=== PATIENT | male | born 1975 | race Caucasian/White ===

== ENCOUNTER 2020-02-21 02:06 | Emergency (ER) | payer BC ==
[2020-02-21] MEDS ORDERED: ACETAMINOPHEN 325 MG TABLET PO ONE (02:42)
[2020-02-21 03:13] LABS: ABSOLUTE BASOPHILS # (AUTO) 0.1 10^3/uL (0.0-0.2); ABSOLUTE EOSINOPHILS # (AUTO) 0.2 10^3/uL (0.0-0.6); ABSOLUTE LYMPHOCYTES (AUTO) 1.4 10^3/uL (0.5-4.7); ABSOLUTE MONOCYTES (AUTO) 0.5 10^3/uL (0.1-1.4); ABSOLUTE NEUT (AUTO) 8.8 10^3/uL (1.7-8.2); BASOPHILS % (AUTO) 0.7 % (0-2); EOSINOPHILS % (AUTO) 1.9 % (0-6); HEMATOCRIT 43.6 % (37.9-51.0); HEMOGLOBIN 15.2 g/dL (13.5-17.0); LYMPHOCYTES % (AUTO) 12.8 % (13-45); MEAN CORPUSCULAR HEMOGLOBIN 30.8 pg (27.0-33.4); MEAN CORPUSCULAR HGB CONC 34.8 g/dL (32.0-36.0); MEAN CORPUSCULAR VOLUME 88 fl (80-97); MONOCYTES % (AUTO) 4.4 % (3-13); PLATELET COUNT 309 10^3/uL (150-450); RED BLOOD COUNT 4.93 10^6/uL (4.35-5.55); RED CELL DISTRIBUTION WIDTH 13.2 % (11.5-14.0); SEGMENTED NEUTROPHILS % (AUTO) 80.2 % (42-78); TOTAL CELLS COUNTED % (AUTO) 100 %
[2020-02-21 03:25] LABS: ALBUMIN 4.2 g/dL (3.5-5.0); ALKALINE PHOSPHATASE 119 U/L (38-126); ANION GAP 9 (5-19); ASPARTATE AMINO TRANSFERASE 40 U/L (17-59); BILIRUBIN,DIRECT 0.1 mg/dL (0.0-0.4); BILIRUBIN,TOTAL 0.8 mg/dL (0.2-1.3); BLOOD UREA NITROGEN 18 mg/dL (7-20); CALCIUM 9.7 mg/dL (8.4-10.2); CARBON DIOXIDE 20 mmol/L (22-30); CHLORIDE 106 mmol/L (98-107); CREATINE KINASE 55 U/L (55-170); GLUCOSE 171 mg/dL (75-110); POTASSIUM 4.1 mmol/L (3.6-5.0); TOTAL PROTEIN 7.5 g/dL (6.3-8.2)
[2020-02-21 03:38] LABS: TROPONIN I < 0.012 ng/mL
--- NOTE | 2020-02-21 03:47 | RADIOLOGY REPORT (SQ) ---
EXAM DESCRIPTION: [facility]: XR CHEST 2 VIEWS Views: 2 CLINICAL HISTORY: 44 years Male; cp; COMPARISON: 01/27/2013 FINDINGS: Lungs: Mild linear atelectasis in the left lower lung field. No acute infiltrates, effusion, or pneumothorax. Mediastinum: Loop recorder is noted. No mediastinal widening or shift. Heart size is normal. Bones: Bony structures are unremarkable. IMPRESSION: 1. No acute cardiothoracic abnormality.
[2020-02-21] MEDS ORDERED: ONDANSETRON HCL INJ/PF 4 MG/2 ML SDV IV ONE (05:15)
[2020-02-21] MEDS ORDERED: MORPHINE SULFATE 10 MG/ML INJ IV ONE (05:15)
--- NOTE | 2020-02-21 05:32 | ER Document Report ---
ED Medical Screen (RME) - General Chief Complaint: Chest Pain Stated Complaint: SOB/BACK PAIN Primary Care Provider: ARLENE ARCHULETA [Primary Care Provider] - Follow up as needed - HPI Notes: 02/21/20 05:26 44-year-old male history of obesity, colostomy bag secondary to diverticulitis, V. tach episode 3 years ago presents with chest pain. Patient sudden onset pain in upper left back and upper left abdomen that began at rest at 1 am and has been constant since associated with shortness of breath without aggravating or alleviating factors or prior episodes. Pain seemed to start in back and then moved to abdomen. Patient had described chest pain but then points to upper left abdomen. Patient denies cough, fever, CAD history, hypertension hyperlipidemia diabetes, smoking, IV drug use, alcohol use, vomiting, bowel symptoms, urinary symptoms, exertional chest pain, pleuritic chest pain, lower extremity edema, DVT/PE history - Related Data Allergies/Adverse Reactions: Penicillins Allergy (Verified 01/27/13 12:04) Home Medications: asa, cardiviel, lisnipril, aldactone Past Medical History - General Information source: Patient, Relative Endocrine Medical History: Reports: Hx Diabetes Mellitus Type 2 - Sig hx mother side Past Surgical History: Reports: Hx Appendectomy, Hx Orthopedic Surgery - arthroscope rt. shoulder - Immunizations Hx Diphtheria, Pertussis, Tetanus Vaccination: Yes Review of Systems - Review of Systems Notes: General: No fever, no chills Physical Exam - Vital signs Vitals: Temp Pulse Resp BP Pulse Ox 97.8 F 103 H 17 137/76 H 98 02/21/20 02:20 02/21/20 02:20 02/21/20 02:20 02/21/20 02:20 02/21/20 02:20 - Notes Notes: PHYSICAL EXAMINATION: GENERAL: Well-appearing, well-nourished and in no acute distress. HEAD: Atraumatic, normocephalic. EYES: Pupils equal round and appropriate constriction, sclera anicteric, conjunctiva are normal. ENT: nares patent, moist mucous membranes. NECK: Normal range of motion, supple without lymphadenopathy LUNGS: Breath sounds clear to auscultation bilaterally and equal. No wheezes rales or rhonchi. HEART: Regular rate and rhythm without murmurs, bilateral radial pulses 2+ equal ABDOMEN: Soft, nontender, no guarding, no masses, no CVAT, right lower quadrant ostomy bag in place with brown soft stool in bag EXTREMITIES: Normal range of motion, no pitting or edema. No cyanosis. NEUROLOGICAL: Awake, alert, conversing appropriately, moves all extremities spontaneously. PSYCH: Normal mood, normal affect. SKIN: Warm, Dry, normal turgor, no rashes or lesions noted. Course - Re-evaluation Re-evalutation: 02/21/20 05:31 Patient to be further evaluated by primary provider. Will order CTA to rule out aortic dissection and continue to closely monitor. - Vital Signs Vital signs: Temp Pulse Resp BP Pulse Ox 97.8 F 103 H 17 137/76 H 98 02/21/20 02:20 02/21/20 02:20 02/21/20 02:20 02/21/20 02:20 02/21/20 02:20 - Laboratory Result Diagrams: 02/21/20 02:55 02/21/20 02:55 Laboratory results interpreted by me: 02/21/20 02/21/20 02:55 02:55 WBC 11.0 H Lymph % (Auto) 12.8 L Absolute Neuts (auto) 8.8 H Seg Neutrophils % 80.2 H Sodium 134.6 L Carbon Dioxide 20 L Glucose 171 H ALT 86 H Doctor's Discharge - Discharge Referrals: LOCALMD,NO [Primary Care Provider] - Follow up as needed
--- NOTE | 2020-02-21 07:31 | ER Document Report ---
ED General - General Chief Complaint: Chest Pain Stated Complaint: SOB/BACK PAIN Time Seen by Provider: 02/21/20 06:57 Primary Care Provider: ARLENE ARCHULETA [NO LOCAL MD] - Follow up as needed - HPI Notes: Patient is a 44-year-old male who presents to the emergency department for evaluation of back and epigastric pain. He states at 1:00 in the morning he was lying in bed, watching television. He developed a sudden pain in his mid back, the lower thoracic region. He states that it radiated through into his abdomen. He describes it as a constant pain, but despite multiple attempts, I am unable to get him to describe it in any other way. He states it progressively got worse. He states at times he felt slightly short of breath with it, slightly nauseated with it. He said normal output through his ostomy. He has had no fevers or chills. No emesis. He does note that he had a rectal contrasted CT scan performed yesterday in [place] to evaluate as to whether or not his ostomy is reversible. Otherwise he has been eating and drinking normally, taking his medications as prescribed. He states his pain was significantly relieved by the medications he was given here in the emergency department. On further questioning the patient states he has had a cough for about a year. He was told it was from the lisinopril. About 5 or 6 months ago it became productive. He was waiting to be evaluated for that when COVID-19 hit. He has had no fevers. - Related Data Allergies/Adverse Reactions: Penicillins Allergy (Verified 01/27/13 12:04) Home Medications: asa, Coreg, lisinopril, Aldactone Past Medical History - General Information source: Patient, Relative - Social History Smoking Status: Never Smoker Family History: Reviewed & Not Pertinent Patient has homicidal ideation: Yes - Past Medical History Cardiac Medical History: Reports: Hx Hypertension, Other - Ventricular tachycardia Past Surgical History: Reports: Hx Abdominal Surgery - ileostomy, Hx Appendectomy, Hx Orthopedic Surgery - arthroscope rt. shoulder - Immunizations Hx Diphtheria, Pertussis, Tetanus Vaccination: Yes Review of Systems - Review of Systems Respiratory: See HPI Gastrointestinal: See HPI -: Yes All other systems reviewed and negative Physical Exam - Vital signs Vitals: Temp Pulse Resp BP Pulse Ox 97.8 F 103 H 17 137/76 H 98 02/21/20 02:20 02/21/20 02:20 02/21/20 02:20 02/21/20 02:20 02/21/20 02:20 - Notes Notes: This is an obese 44-year-old male appears stated age, no acute distress. Head is normocephalic and atraumatic, pupils are equal round, active to light. Oral mucosa is moist. Uvula is midline. Heart is regular rate and rhythm, lungs are clear to auscultation bilaterally. Abdomen is obese. He is a large midline abdominal scar and an ileostomy in the right lower quadrant with liquid brown stool noted. He has mild epigastric tenderness without rebound or guarding. Normoactive bowel sounds throughout. Extremities without cyanosis, clubbing, edema. Skin is warm and dry. Peripheral pulses are equal. Patient is awake and alert, neurological exam is nonfocal. Course - Re-evaluation Re-evalutation: 02/21/20 07:30 Patient presents to the emergency department for evaluation of back pain radiating into the epigastrium. He was initially seen by another provider, RME note placed in laboratory investigations, medications, imaging ordered. Patient's pain is significantly improved after interventions performed earlier in the department. Still awaiting results of CT angiogram of the chest, abdomen, pelvis. Otherwise, his laboratory investigations are unremarkable. I did add a lipase given his mild epigastric tenderness. Patient is currently stable, we will continue to monitor. 02/21/20 08:47 Patient's lipase was unremarkable. CT scan of the chest, abdomen, pelvis revealed multiple hernias. These are known to the patient and his . He has follow-up with surgery in regards to this. We also discussed the atelectatic changes in the lymph node in his lungs. He talked at length about his productive cough. Given his history, I will go ahead and treat him for potential pneumonia. I will write him a prescription for doxycycline. At any rate, he is told that this will need further imaging and follow-up, perhaps referral on to pulmonology. He needs to discuss this with his primary care provider. He and his both voiced understanding to the need for follow-up. Otherwise patient's abdominal exam remains entirely unremarkable. We will send him home with doxycycline and instructions to return to the ED with worsening. - Vital Signs Vital signs: Temp Pulse Resp BP Pulse Ox 97.8 F 103 H 18 115/72 95 02/21/20 02:20 02/21/20 02:20 02/21/20 08:01 02/21/20 08:01 02/21/20 08:01 - Laboratory Result Diagrams: 02/21/20 02:55 02/21/20 02:55 Laboratory results interpreted by me: 02/21/20 02/21/20 02:55 02:55 WBC 11.0 H Lymph % (Auto) 12.8 L Absolute Neuts (auto) 8.8 H Seg Neutrophils % 80.2 H Sodium 134.6 L Carbon Dioxide 20 L Glucose 171 H ALT 86 H - Diagnostic Test Radiology reviewed: Image reviewed, Reports reviewed - EKG Interpretation by Me Additional EKG results interpreted by me: 02/21/20 07:31 Sinus tachycardia with rate of 107 bpm. Low voltage in the frontal leads. Normal axis and intervals. Nonspecific T wave changes, but no ST elevation concerning for acute infarction. There are no old studies immediately available for comparison. Discharge - Discharge Clinical Impression: Epigastric abdominal pain Ventral hernia Qualifiers: Obstruction and gangrene presence: without obstruction or gangrene Qualified Code(s): K43.9 - Ventral hernia without obstruction or gangrene Pneumonia Qualifiers: Pneumonia type: due to unspecified organism Laterality: left Lung location: lower lobe of lung Qualified Code(s): J18.9 - Pneumonia, unspecified organism Condition: Stable Disposition: HOME, SELF-CARE Instructions: Abdominal Pain ([facility]), Pneumonia ([facility]) Additional Instructions: Your CT scan today showed findings in your lung which may be secondary to atele ctasis or pneumonia. You are being treated for pneumonia, please take all the antibiotic as prescribed. Follow-up with your primary care doctor about this. There was also a lymph node in this area, and further imaging in 4 to 6 weeks is recommended. You may want to consider pulmonology referral as well. Otherwise, your abdominal CT scan showed hernias, but no signs of obstruction. If your pa in worsens, you develop fevers, vomiting, or any other new or concerning symptoms, please return immediately to the emergency department for evaluation. Prescriptions: Doxycycline Hyclate 100 mg PO BID #20 tablet. Referrals: LOCAL,NO [NO LOCAL MD] - Follow up as needed
--- NOTE | 2020-02-21 07:43 | RADIOLOGY REPORT (SQ) ---
EXAM DESCRIPTION: CT CHEST ANGIOGRAPHY WITHOUT THEN WITH IV CONTRAST CLINICAL HISTORY: 44 years, Male, cp back pain abdominal pain r/o aortic dissection. CREAT 0.72 COMPARISON: Chest x-ray from today. CT chest 02/06/2013. TECHNIQUE: Axial images performed with 100 mL of Omnipaque 350. MIP reconstruction. Images stored on PACS. All CT scanners at this facility use dose modulation, iterative reconstruction, and/or weight based dosing when appropriate to reduce radiation dose to as low as reasonably achievable (ALARA). FINDINGS: No evidence for pulmonary hypertension or pulmonary embolus. Normal caliber aorta without dissection. Heart is not enlarged. No suspicious mediastinal adenopathy or pericardial effusion. Mild to moderate size focal left lower lobe medial parenchymal opacity. Enhancing vessels noted within the opacity. Suggestive of atelectasis. Minimal 13 mm nodular soft tissue fullness in the left infrahilar region just superior to the atelectasis. Series 3 image 68. No definite intrabronchial abnormality. Very minimal atelectasis in the right lower lobe. No evidence for pleural disease. IMPRESSION: 1. Normal thoracic aorta and pulmonary arteries. 2. Well-defined left lower lobe medial atelectasis. Suspected minimally enlarged 13 mm lymph node just superior to the atelectasis. 3. Recommend a follow-up chest x-ray or CT chest in approximately 4-6 weeks to evaluate if the finding has changed. Consider pulmonary medicine follow-up.
--- NOTE | 2020-02-21 08:00 | RADIOLOGY REPORT (SQ) ---
EXAM DESCRIPTION: CT ABDOMEN PELVIS ANGIOGRAPHY WITHOUT THEN WITH IV CONTRAST COMPLETED DATE/TME: 02/21/2020 05:14 CLINICAL HISTORY: 44 years, Male, cp back pain abdominal pain r/o aortic dissection CREAT 0.72 COMPARISON: CT chest from today. TECHNIQUE: Examination performed with 100 mL of Omnipaque 350. MIP reconstruction. Images stored on PACS. All CT scanners at this facility use dose modulation, iterative reconstruction, and/or weight based dosing when appropriate to reduce radiation dose to as low as reasonably achievable (ALARA). FINDINGS: Focal opacity left lower lobe medially. Borderline fatty liver. Spleen, pancreas, kidneys are unremarkable. Tiny gallstones. No acute biliary abnormality. Left adrenal gland unremarkable. Right adrenal gland demonstrates an approximately 27 mm fatty lesion consistent with myelolipoma. Lesion was mildly smaller on CT chest from 01/27/2015. Normal caliber abdominal aorta. No dissection. Aortic branches are unremarkable. No suspicious para-aortic abnormalities. Residual dense barium in nondilated colon. Small bowel loops are minimally dilated. CT of the lower abdomen and upper pelvis demonstrate three separate hernias. There is a large right anterolateral abdominal wall hernia with herniation of small bowel loops. Series 3 image 181. There is a small midline umbilical hernia with herniation of small bowel.. Image 174. There is a mild to moderate left paraumbilical hernia with herniation of small bowel. Images 162-171. There is no associated acute inflammation of the bowel loops of the adjacent fat. CT of the pelvis demonstrates artifact from barium in the cecum. There are noted also in the rectosigmoid colon. Urinary bladder is unremarkable. Prostate not enlarged. No adenopathy or free fluid. No suspicious bony lesions. No suspicious vascular abnormality. IMPRESSION: 1. Normal abdominal aorta and its branches. Normal pelvic vessels. 2. Complex hernia process in the mid abdomen with three adjacent but separate hernias identified. There is herniation of small bowel loops. There is very minimal dilatation of small bowel proximal to the hernias. There is no suspicious bowel obstruction. There is residual barium in nondilated colon. 3. Mild fatty liver. 4. Suspected tiny gallstones. 5. 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 6. Abnormal left lung base. Please see separate CT chest dictation. Follow-up was recommended.
[2020-02-21 09:05] VITALS: BP 117/71
--- NOTE | 2020-02-21 23:03 | EKG REPORT ---
SEVERITY:- ABNORMAL ECG - SINUS TACHYCARDIA PROBABLE LEFT ATRIAL ABNORMALITY LOW VOLTAGE IN FRONTAL LEADS NONSPECIFIC T ABNORMALITIES, INFERIOR LEADS : Confirmed by: Thelma Crowder MD 21-Feb-2020 23:02:20
== END 2020-02-21 09:17 | disposition home or self-care (01) ==
LOC: ER 02:06
DX: J18.9 Pneumonia, unspecified organism (principal); K43.9 Ventral hernia without obstruction or gangrene; R10.13 Epigastric pain; R10.816 Epigastric abdominal tenderness; M54.9 Dorsalgia, unspecified; R06.02 Shortness of breath; R11.0 Nausea; R05 Cough; I10 Essential (primary) hypertension; I47.2 Ventricular tachycardia; Z79.82 Long term (current) use of aspirin; Z79.899 Other long term (current) drug therapy; Z93.2 Ileostomy status; Z90.49 Acquired absence of other specified parts of digestive tract
CPT/HCPCS: 93005; 99285; 96374; 96375; 36415; 82553; 82550; 83690; 85025; 80053; 84484; 71046; 71275; 74174; 93010; J2270; J2405